=== PATIENT | male | born 1950 | race Caucasian/White ===

== ENCOUNTER 2016-07-02 09:41 | Emergency (ER) | payer OTHER, MEDICARE ==
[~2016-07-02] VITALS: Ht 182.9 cm; Wt 117.9 kg
--- NOTE | 2016-07-02 10:29 | ED GENERAL ADULT ---
History of Present Illness General Chief Complaint: Chest Pain Stated Complaint: BILAERAL ALL EXTREMITIES SWOLLEN AND CP Source: patient Exam Limitations: no limitations Vital Signs & Intake/Output Vital Signs & Intake/Output Vital Signs Date Time Temp Pulse Resp B/P Pulse O2 O2 Flow FiO2 Ox Delivery Rate 07/02 1252 98.6 86 18 136/84 98 Room Air 07/02 1035 75 130/61 07/02 0955 98.5 72 18 146/92 98 Room Air Allergies Coded Allergies: MDX - Penicillin (PENICILLIN) (UNKNOWN 02/09/11) Reconcile Medications Meclizine HCl 25 MG TABLET 1 TAB PO TIDPRN DIZZINESS Prednisone 10 MG TABLET 1 TAB PO AD ARTHRITIS 4 TABLETS BY MOUTH DAILY 3 DAYS tHEN 3 TABLETS BY MOUTH DAILY 3 DAYS tHAN 2 TABLETS BY MOUTH DAILY 3 DAYS tHEN 1 TABLET BY MOUTH DAILY 3 DAYS Triage Note: C/O DIZZINESS SINCE LAST PM,, BILATERAL SHOULDER AND ARM PAIN X 3 WEEKS, WITH HAND SWELLING. Triage Nurses Notes Reviewed? yes HPI: 65-year-old male with multiple medical complaints. He states that 3 weeks ago he started having bilateral shoulder pain, he has history of arthritis of his hip and knees and has had replacement surgery of his left hip. He states his bilateral shoulder started hurting, left and then right a few days later pain was going across his chest and then he started having swelling in both hands, after few days of the hand swelling started having swelling in both feet. He saw his primary care doctor who placed him initially on prednisone which relieved the symptoms however after stopping prednisone the swelling returned, he was in place on MOBIC which did not affect his symptoms. He continues to have bilateral hand swelling and feet swelling and pain in his shoulders. This morning he started feeling dizziness and feeling lightheaded, dizziness when he moves his head when he shakes his head around and feeling lightheaded when he goes from sitting to standing. He did not have any chest pain or so breath. He has had fatigue and malaise. (MATTHEW HARDY) Past History Travel History Traveled to [place] past 21 day No Medical History Any Pertinent Medical History? see below for history Cardiovascular: hypertension Musculoskeletal: osteoarthritis Surgical History Surgical History: hip replacement (L) Psychosocial History Who do you live with Spouse Services at Home None What is your primary language [place] Tobacco Use: Quit <30 days ago ETOH Use: denies use Family History Hx Contributory? No (MATTHEW HARDY) Review of Systems Review of Systems Constitutional: Reports: see HPI. EENTM: Reports: no symptoms. Respiratory: Reports: no symptoms. Cardiovascular: Reports: no symptoms. GI: Reports: no symptoms. Genitourinary: Reports: no symptoms. Musculoskeletal: Reports: see HPI. Skin: Reports: no symptoms. Neurological/Psychological: Reports: no symptoms. Hematologic/Endocrine: Reports: no symptoms. Immunologic/Allergic: Reports: no symptoms. All Other Systems: Reviewed and Negative (MATTHEW HARDY) Physical Exam Physical Exam General Appearance: well developed/nourished Comments: Well-developed well-nourished person in no acute distress HEENT: Normal EENT exam, extraocular motion intact, no nystagmus. Pupils equally round and reactive to light. Nose is atraumatic. External auditory canal and Tympanic membranes clear. Pharynx normal. No swelling or edema. Neck: Supple, no lymphadenopathy, normal range of motion without pain or tenderness Back: Nontender, no CVA tenderness. Full range of motion Cardiovascular: Regular rate and rhythms no murmurs, normal JVP Respiratory: Chest nontender. No respiratory distress. Breath sounds clear to auscultation bilaterally Abdomen: Soft, nontender nondistended, no appreciable organomegaly. Normal bowel sounds. No ascites Extremity: Trace edema into the bilateral hands from the wrist down and fingers, bilateral lower legs ankles and feet. Nontender. No calf tenderness to palpation, normal and equal pulses. Neuro: Alert oriented x3, motor sensory normal, cranial nerves II through XII grossly intact. Skin: No appreciable rash on exposed skin, skin is warm and dry. Psych: Mood and affect is normal, memory and judgment is normal. Core Measures ACS in differential dx? Yes CVA/TIA Diagnosis: No Severe Sepsis Present: No Septic Shock Present: No (MATTHEW HARDY) Progress Differential Diagnoses I considered the following diagnoses in my evaluation of the patient: Rheumatoid arthritis, rheumatological disorder, CVA, diabetes, renal insufficiency, chronic or acute kidney injury Plan of Care: Orders Procedure Date/time Status MISTAKE 07/02 1025 Active TROPONIN LEVEL 07/02 1025 Complete WESTERGREN SED RATE 07/02 1025 Complete COMPREHENSIVE METABOLIC PANEL 07/02 1025 Complete CBC WITHOUT DIFFERENTIAL 07/02 1025 Complete EKG 07/02 0943 Active Laboratory Tests 07/02/16 1035: Anion Gap 11, Estimated GFR > 60, BUN/Creatinine Ratio 20.0, Glucose 110 H, Calcium 9.0, Total Bilirubin 0.5, AST 14 L, ALT 26, Alkaline Phosphatase 73, Troponin I < 0.01, Total Protein 6.7, Albumin 3.5, Globulin 3.2, Albumin/ Globulin Ratio 1.1, CBC w Diff NO MAN DIFF REQ, RBC 4.22 L, MCV 92.1, MCH 30.0, RDW 13.5, MPV 7.9, Gran % 69.3, Lymphocytes % 17.7 L, Monocytes % 11.8 H, Eosinophils % 1.0, Basophils % 0.2, Absolute Granulocytes 9.7 H, Absolute Lymphocytes 2.5, Absolute Monocytes 1.7 H, Absolute Eosinophils 0.1, Absolute Basophils 0, PUBS MCHC 32.6 L, ESR Westergren 51 H Initial ED EKG: NSR, rate (77), no ST T wave changes Rhythm Strip: normal sinus rhythm Comments: not orthostatic. He is given a liter fluid. Workup ensues. Patient's workup is unremarkable except for mildly elevated white blood cell count which could be related to his recent prednisone use and I do not see any signs of infection. His ESR is 51. His chest x-ray is clear, on review of the chest x-ray myself I noted that he has arthritis of both shoulders. He is likely having arthritic condition causing the swelling to track down by gravity into the hands. He has felt much improvement after being on prednisone previously and we will put him back on a longer course of prednisone until he can see rheumatology on July 17. IV's point and I think this is a primarily rheumatological condition and the dizziness is likely positional vertigo as he has had symptoms when moving his head and going from sitting to standing. We'll place him on Antivert when necessary. He understands and agrees with plan. (ALEJA PANIAGUA,MATTHEW) Departure Departure Disposition: HOME OR SELF CARE Condition: Stable Clinical Impression Primary Impression: Arthritis Secondary Impressions: Vertigo Referrals: PANKAJ ROMERO,ZAINAB MOLINA DO (PCP/Family) Additional Instructions: Follow-up with Dr. Fox in 2 weeks as directed. Take prednisone as directed Take Antivert as needed for dizziness Departure Forms: Customer Survey General Discharge Information Prescriptions: Current Visit Scripts Prednisone 1 TAB PO AD #30 TAB 4 TABLETS BY MOUTH DAILY 3 DAYS tHEN 3 TABLETS BY MOUTH DAILY 3 DAYS tHAN 2 TABLETS BY MOUTH DAILY 3 DAYS tHEN 1 TABLET BY MOUTH DAILY 3 DAYS Meclizine HCl 1 TAB PO TIDPRN #30 TAB (MATTHEW HARDY) PA/RAIL[employer] MECHANIC Co-Sign Statement Statement: ED Attending supervision documentation- [] I saw and evaluated the patient. I have also reviewed all the pertinent lab results and diagnostic results. I agree with the findings and the plan of care as documented in the PA's/RAILCAR MECHANIC's documentation. x I have reviewed the ED Record and agree with the PA's/RAILCAR MECHANIC's documentation. [] Additions or exceptions (if any) to the PAs/RAILCAR MECHANIC's note and plan are summarized below: [] (KEYON ROMERO,EMI) Critical Care Note Critical Care Note Critical Care Time: non-applicable (MATTHEW HARDY)
[2016-07-02 10:56] LABS: ABSOLUTE BASOPHIL COUNT 0 /CUMM (0.0-0.2); ABSOLUTE EOSINOPHIL COUNT 0.1 /CUMM (0.0-0.7); ABSOLUTE GRANULOCYTE CT 9.7 /CUMM (1.4-6.5); ABSOLUTE LYMPH COUNT 2.5 /CUMM (1.2-3.4); ABSOLUTE MONOCYTE COUNT 1.7 /CUMM (0.10-0.60); BASOPHIL % 0.2 % (0.0-2.0); GRANULOCYTE % 69.3 % (42.2-75.2); HEMATOCRIT 38.9 % (42-52); MEAN CORPUSCULAR HGB CONC 32.6 G/DL (33.0-37.0); MEAN CORPUSCULAR VOLUME 92.1 FL (80.0-94.0); MEAN PLATELET VOLUME 7.9 FL (7.4-10.4); PLATELET COUNT 344 /CUMM (130-400); RBC DISTRIBUTION WIDTH 13.5 % (11.5-14.5); RED BLOOD CELL CT 4.22 /CUMM (4.70-6.10)
--- NOTE | 2016-07-02 11:19 | RADIOLOGY REPORT ---
EXAMINATION: XR CHEST CLINICAL INFORMATION: Chest pain, shoulder pain. COMPARISON: Chest 02/09/2011. TECHNIQUE: 2 views of the chest were obtained. FINDINGS: Both lungs are fairly well-expanded and clear. The heart size and pulmonary vascularity is normal. No gross bony abnormality seen. IMPRESSION: Unremarkable chest exam. No change from 02/09/2011.
[2016-07-02] MEDS ORDERED: MECLIZINE HCL25 MG PO (12:31)
[2016-07-02] MEDS ORDERED: PREDNISONE10 M2 PO (12:31)
[2016-07-02 12:52] VITALS: BP 136/84
== END 2016-07-02 12:52 ==
LOC: ERH 09:41
PROVIDERS: Physician Assistant Surgical
DX: M19.90 Unspecified osteoarthritis, unspecified site (principal); R42 Dizziness and giddiness; M79.89 Other specified soft tissue disorders
CPT/HCPCS: 93005; 93010